=== PATIENT | female | born 1940 | race Caucasian/White ===

== ENCOUNTER 2020-08-09 15:40 | Emergency (ER) | payer MEDICARE, OTHER ==
[~2020-08-09 15:40] MED LIST: ACETAMINOPHEN325 MG PO; ASPIRIN 325MG325 MG PO; ATORVASTATIN CA20 MG PO; CLOPIDOGREL75 MG PO; FERROUS SULFAT325 M2 PO; LANTUS100 UNIT/1 SC; LORTAB 7.5-3251 EACH PO; METFORMIN HCL500 MG PO; THERAGRAN M TAB1 EA PO; ZYVOX600 MG PO
[2020-08-09] MEDS ORDERED: DOXYCYCLINE HY100 MG PO (18:15)
== END 2020-08-09 18:30 | disposition home or self-care (01) ==
LOC: ER1 15:40
DX: E11.621 Type 2 diabetes mellitus with foot ulcer (principal); E11.51 Type 2 diabetes mellitus with diabetic peripheral angiopathy without gangrene; L97.529 Non-pressure chronic ulcer of other part of left foot with unspecified severity; Z79.4 Long term (current) use of insulin; I10 Essential (primary) hypertension; Z79.82 Long term (current) use of aspirin; Z88.1 Allergy status to other antibiotic agents
CPT/HCPCS: 99283

== ENCOUNTER → 2020-08-14 | Outpatient (CLI) | payer MEDICARE, OTHER ==
[~2020-08-14] MED LIST changes: +DOXYCYCLINE HY100 MG PO
== END ==
LOC: WCC 13:00
DX: E11.621 Type 2 diabetes mellitus with foot ulcer (principal); E08.52 Diabetes mellitus due to underlying condition with diabetic peripheral angiopathy with gangrene; I73.9 Peripheral vascular disease, unspecified; G90.09 Other idiopathic peripheral autonomic neuropathy; Z89.412 Acquired absence of left great toe; Z89.511 Acquired absence of right leg below knee; Z79.4 Long term (current) use of insulin
CPT/HCPCS: 87070; 87077; 87186; 87205